=== PATIENT | female | born 1990 | race Caucasian/White ===

== ENCOUNTER → 2021-05-26 12:59 | Outpatient (CLI) | payer OTHER, SELFPAY ==
--- NOTE | 2021-05-26 | DI.MRI.S_ITS ---
PROCEDURE: MR HEAD/BRAIN WO CON INDICATIONS: Other disturbances of smell and taste TECHNIQUE: Noncontrast axial T1 spin echo, axial T2 fast spin echo, sagittal and axial FLAIR, coronal T2 fast spin echo, axial gradient echo, axial diffusion and ADC through the brain. COMPARISON: None. FINDINGS: Image quality: Excellent. CSF Spaces: Basal cisterns are patent. No extra-axial fluid collections. Ventricles are normal in size and shape. Brain: No intracranial masses or hemorrhage. No masses are seen at the skull base. Durbin/white matter interface is normal. Brainstem appears normal. Diffusion-weighted images demonstrate no acute ischemic insult. No chronic ischemic insults. Normal intravascular flow voids are present. Skull and face: Calvarium has normal marrow signal. Orbits appear normal. Sinuses: Sinuses and mastoids are clear. IMPRESSION: Unremarkable brain MRI, without an imaging explanation found for the patient's presenting history. No skull base masses are seen. No findings of acute or subacute infarction can be seen. Dictated by: Nilton Saunders M.D. on 05/26/2021 at 14:13 Approved by: Nilton Saunders M.D. on 05/26/2021 at 14:14
== END ==
PROVIDERS: PCP Nurse Practitioner; Referring Provider Otolaryngology; Visit Provider Otolaryngology
DX: R43.8 Other disturbances of smell and taste (principal)
CPT/HCPCS: 70551